=== PATIENT | female | born 1950 | race African-American/Black ===

== ENCOUNTER 2021-09-13 07:56 | Day surgery (SDC) | payer OTHER, SELFPAY ==
[~2021-09-13] VITALS: Ht 154.9 cm; Wt 66.7 kg
[2021-09-13] MEDS ORDERED: LIDOCAINE 2% 100 MG/5 ML UJET TP ONE (10:46)
[2021-09-13] MEDS ORDERED: MIDAZOLAM 5 MG/5 ML VIAL ONE ×2 (10:46→11:06)
[2021-09-13] MEDS ORDERED: fentaNYL citrate 0.05 MG/ML VIAL ONE ×2 (10:47)
[2021-09-13] MEDS ORDERED: fentaNYL citrate 0.05 MG/ML VIAL IVP ONE (14:10)
[2021-09-13] MEDS ORDERED: MIDAZOLAM 2 MG/2 ML VIAL IVP ONE (14:10)
== END 2021-09-13 14:10 | disposition home or self-care (01) ==
LOC: MDS 07:56 → MMU 07:58 → MDS 14:10
PROVIDERS: ATTEND Internal Medicine Gastroenterology
DX: K62.5 Hemorrhage of anus and rectum (principal); D12.3 Benign neoplasm of transverse colon; D12.5 Benign neoplasm of sigmoid colon; Z87.891 Personal history of nicotine dependence; B18.2 Chronic viral hepatitis C; R74.01 Elevation of levels of liver transaminase levels; Z20.822 Contact with and (suspected) exposure to COVID-19
CPT/HCPCS: 45380; 45385; 87426; 88305; J2250; J3010

== ENCOUNTER 2021-10-18 09:34 | Day surgery (SDC) | payer OTHER, SELFPAY ==
[~2021-10-18] VITALS: Ht 154.9 cm; Wt 63.5 kg
[2021-10-18] MEDS ORDERED: fentaNYL citrate 0.05 MG/ML VIAL ONE (11:48)
[2021-10-18] MEDS ORDERED: MIDAZOLAM 5 MG/5 ML VIAL ONE (11:48)
[2021-10-18] MEDS ORDERED: LIDOCAINE 2% 100 MG/5 ML UJET TP ONE (11:48)
[2021-10-18] MEDS ORDERED: diphenhydrAMINE 50 MG/ML VIAL ONE (11:48)
[2021-10-18] MEDS ORDERED: MIDAZOLAM 2 MG/2 ML VIAL IVP ONE (12:55)
[2021-10-18] MEDS ORDERED: fentaNYL citrate 0.05 MG/ML VIAL IVP ONE (12:55)
== END 2021-10-18 13:15 | disposition home or self-care (01) ==
LOC: MDS 09:34 → MMU 09:35 → MDS 13:15
PROVIDERS: ATTEND Internal Medicine Gastroenterology
DX: K92.1 Melena (principal); C21.0 Malignant neoplasm of anus, unspecified; K63.5 Polyp of colon; K76.89 Other specified diseases of liver; F17.210 Nicotine dependence, cigarettes, uncomplicated; Z79.899 Other long term (current) drug therapy; Z20.822 Contact with and (suspected) exposure to COVID-19
CPT/HCPCS: 45331; 87426; 88305; J2250; J3010; 45330; J1200